=== PATIENT | male | born 2005 | race African-American/Black ===

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

== ENCOUNTER 2024-01-25 21:53 | Emergency (ER) | payer OTHER ==
[2024-01-25 21:59] VITALS: BP 118/67; PULSE 93; RESP 18; TEMP 98.4; BMI 26.4
[2024-01-25] MEDS ORDERED: IBUPROFEN 600 MG TABLET (FP) PO ONE (23:38)
[2024-01-25] MEDS: IBUPROFEN 600 MG TABLET (FP) PO ONE (23:39)
== END 2024-01-25 23:51 | disposition home or self-care (01) ==
LOC: JERFT 21:53 → JER 21:53
DX: S93.401A Sprain of unspecified ligament of right ankle, initial encounter (principal); X50.1XXA Overexertion from prolonged static or awkward postures, initial encounter; Y93.67 Activity, basketball
CPT/HCPCS: 73610-TC-RT-FY; 73630-TC-RT-FY; 99283-25